=== PATIENT | female | born 1945 | race Caucasian/White ===

== ENCOUNTER 2018-03-17 09:53 | Outpatient (CLI) | payer OTHER, SELFPAY ==
[2018-03-17 10:28] LABS: Abs Immature Grans 0.48 k/cumm (0.0-0.09); Absolute Basophil Count 0.04 k/cumm (0.0-0.2); Absolute Monocyte Count 2.15 k/cumm (0.11-0.7); Basophils % 0.1; HCT 42.9 % (36.0-46.0); HGB 14.7 g/dL (12.0-15.5); Immature Grans % 1.4; Lymphocytes % 2.4; Mean Corp. HGB Concentration 34.3 g/dL (32.0-36.0); Mean Corpuscular Hemoglobin 28.9 pg (27.0-33.0); Mean Corpuscular Volume 84.4 fL (80-95); Mean Platelet Volume 10.9 fL (8.0-11.0); Monocytes % 6.1; Platelet Count 241 x1000/uL (130-400); RBC 5.08 m/cumm (4.00-5.20); RBC Distribution Width 14.9 % (11.7-14.6)
[2018-03-17 10:33] LABS: ALT 189 U/L (12-78); AST 46 U/L (15-37); Albumin 2.4 g/dL (3.4-5.0); Alkaline Phosphatase 128 U/L (46-116); Anion Gap 9.7 mmol/L (3-11); BUN 28 mg/dL (7-18); Bilirubin, Total 0.3 mg/dL (0.2-1.0); CO2 26.3 mmol/L (21.0-32.0); CREATININE 0.71 mg/dL (0.55-1.02); Calcium 9.2 mg/dL (8.5-10.1); Chloride 102 mmol/L (98-107); Glucose 176 mg/dL (70-100); Potassium 3.8 mmol/L (3.5-5.1); Sodium 138 mmol/L (136-145); Total Protein 6.3 g/dL (6.4-8.2)
[2018-03-17 10:47] LABS: Absolute Lymphocyte Count 0.85 k/cumm (1.2-3.4); White Blood Cell Count 35.22 k/cumm (4.4-10.8)
[2018-03-17 10:48] LABS: Diff Comment Agrees w/ Instrument; RBC Morphology Normal
== END 2018-03-17 10:13 ==
PROVIDERS: PCP Internal Medicine; Visit Provider Radiology Radiation Oncology
DX: C34.92 Malignant neoplasm of unspecified part of left bronchus or lung (principal)
CPT/HCPCS: 36415; 80053; 85025

== ENCOUNTER 2018-04-05 01:37 | Outpatient (RCR) | payer OTHER, SELFPAY ==
[2018-03-22] MEDS: Normal Saline Flush 10 ML SYR IVP (07:55)
[2018-03-22 08:13] LABS: Abs Immature Grans 0.59 k/cumm (0.0-0.09); Absolute Basophil Count 0.13 k/cumm (0.0-0.2); Basophils % 0.4; HCT 38.5 % (36.0-46.0); Immature Grans % 1.8; Mean Corp. HGB Concentration 33.8 g/dL (32.0-36.0); Mean Corpuscular Volume 85.9 fL (80-95); Mean Platelet Volume 11.1 fL (8.0-11.0); Monocytes % 2.3; Neutrophils % 94.5; Platelet Count 186 x1000/uL (130-400); RBC 4.48 m/cumm (4.00-5.20); RBC Distribution Width 14.6 % (11.7-14.6)
[2018-03-22 08:20] LABS: ALT 105 U/L (12-78); AST 14 U/L (15-37); Albumin 2.3 g/dL (3.4-5.0); Alkaline Phosphatase 91 U/L (46-116); Anion Gap 8.1 mmol/L (3-11); BUN 19 mg/dL (7-18); Bilirubin, Total 0.5 mg/dL (0.2-1.0); CO2 28.9 mmol/L (21.0-32.0); CREATININE 0.57 mg/dL (0.55-1.02); Calcium 8.7 mg/dL (8.5-10.1); Chloride 100 mmol/L (98-107); Glucose 204 mg/dL (70-100); Potassium 3.5 mmol/L (3.5-5.1); Sodium 137 mmol/L (136-145); Total Protein 5.7 g/dL (6.4-8.2)
[2018-03-22 08:39] LABS: Absolute Lymphocyte Count 0.33 k/cumm (1.2-3.4); Absolute Monocyte Count 0.76 k/cumm (0.11-0.7); Absolute Neutrophil Count 31.32 k/cumm (1.2-6.7); White Blood Cell Count 33.14 k/cumm (4.4-10.8)
[2018-03-22 08:40] LABS: Diff Comment Agrees w/ Instrument; RBC Morphology Normal
[2018-03-29] MEDS: Normal Saline Flush 10 ML SYR IVP (08:05)
[2018-03-29 08:11] LABS: Abs Immature Grans 0.23 k/cumm (0.0-0.09); Absolute Basophil Count 0.02 k/cumm (0.0-0.2); Basophils % 0.1; Eosinophils % 0.1; HCT 36.4 % (36.0-46.0); Immature Grans % 1.4; Lymphocytes % 3.4; Mean Corpuscular Hemoglobin 28.6 pg (27.0-33.0); Mean Corpuscular Volume 86.7 fL (80-95); Mean Platelet Volume 10.2 fL (8.0-11.0); Monocytes % 4.2; Neutrophils % 90.8; Platelet Count 181 x1000/uL (130-400); White Blood Cell Count 16.62 k/cumm (4.4-10.8)
[2018-03-29 08:14] LABS: Absolute Eosinophil Count 0.02 k/cumm (0.0-0.7); Absolute Lymphocyte Count 0.57 k/cumm (1.2-3.4); Absolute Neutrophil Count 15.09 k/cumm (1.2-6.7)
[2018-03-29 08:26] LABS: ALT 322 U/L (12-78); AST 124 U/L (15-37); Albumin 1.8 g/dL (3.4-5.0); Alkaline Phosphatase 193 U/L (46-116); Anion Gap 7.3 mmol/L (3-11); BUN 14 mg/dL (7-18); Bilirubin, Total 0.3 mg/dL (0.2-1.0); CO2 29.7 mmol/L (21.0-32.0); CREATININE 0.75 mg/dL (0.55-1.02); Calcium 8.6 mg/dL (8.5-10.1); Chloride 100 mmol/L (98-107); Glucose 191 mg/dL (70-100); Potassium 3.3 mmol/L (3.5-5.1); Sodium 137 mmol/L (136-145); Total Protein 5.6 g/dL (6.4-8.2)
== END 2018-04-15 23:59 | disposition home or self-care (01) ==
LOC: INF 01:37
PROVIDERS: Internal Medicine Hospice and Palliative Medicine; PCP Internal Medicine; Visit Provider Nurse Practitioner Family
DX: C34.12 Malignant neoplasm of upper lobe, left bronchus or lung (principal); Z45.2 Encounter for adjustment and management of vascular access device
CPT/HCPCS: 36591; 80053; 85025